=== PATIENT | male | born 1940 | race Caucasian/White ===

== ENCOUNTER 2017-12-25 10:05 | Emergency (ER) | payer OTHER, MEDICARE ==
[~2017-12-25] VITALS: Ht 182.9 cm; Wt 121.0 kg
[~2017-12-25 10:05] MED LIST: ARIC10TA PO; ASPI81TA82 PO; AVOD0.5C PO; BUPR150XL PO; FELO5TAB PO; GABA400 PO; MEGATAB4 PO; NAME5TAB2 PO; OMEGCAP2 PO; PERC5TAB12 PO; TAMS0.4C67 PO; TOPR50TA PO; ZOFR4TAB3 PO
[2017-12-25 10:42] VITALS: BP 162/83; PULSE 56; RESP 16; TEMP 98.1; O2SAT 96
[2017-12-25] MEDS ORDERED: FELO5TAB PO (11:15)
[2017-12-25] MEDS ORDERED: LEVO100T5 PO (11:15)
[2017-12-25] MEDS ORDERED: LOSA25TA PO (11:15)
[2017-12-25] MEDS ORDERED: BUPR300T PO (11:15)
[2017-12-25] MEDS ORDERED: DONE10TA7 PO (11:15)
[2017-12-25] MEDS ORDERED: GABA400C5 PO (11:15)
[2017-12-25] MEDS ORDERED: METF500T PO (11:15)
[2017-12-25] MEDS ORDERED: HYDR12.57 PO (11:15)
[2017-12-25] MEDS ORDERED: ASPI-516 CHEW (11:15)
[2017-12-25] MEDS ORDERED: OMEP20CA2 (11:15)
[2017-12-25] MEDS ORDERED: AVOD0.5C PO (11:15)
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
[2017-12-25] MEDS ORDERED: TRAM50 PO (13:59)
== END 2017-12-25 14:25 | disposition home or self-care (01) ==
LOC: PHEFT 10:05
DX: S22.089A Unspecified fracture of T11-T12 vertebra, initial encounter for closed fracture (principal); S29.012A Strain of muscle and tendon of back wall of thorax, initial encounter; V89.2XXA Person injured in unspecified motor-vehicle accident, traffic, initial encounter; M19.90 Unspecified osteoarthritis, unspecified site; I10 Essential (primary) hypertension; E78.00 Pure hypercholesterolemia, unspecified; F03.90 Unspecified dementia, unspecified severity, without behavioral disturbance, psychotic disturbance, mood disturbance, and anxiety; E11.9 Type 2 diabetes mellitus without complications; K21.9 Gastro-esophageal reflux disease without esophagitis; E07.9 Disorder of thyroid, unspecified; G47.30 Sleep apnea, unspecified; Z87.19 Personal history of other diseases of the digestive system; Z79.82 Long term (current) use of aspirin; Z79.84 Long term (current) use of oral hypoglycemic drugs; Z87.442 Personal history of urinary calculi
CPT/HCPCS: 72125; 72128; 99285; L0150

== ENCOUNTER 2017-12-27 05:35 | Emergency (ER) | payer MEDICARE, OTHER ==
[~2017-12-27] VITALS: Ht 182.9 cm; Wt 122.0 kg
[~2017-12-27 05:35] MED LIST changes: -ARIC10TA PO; +ASPI-516 CHEW; -ASPI81TA82 PO; -BUPR150XL PO; +BUPR300T PO; +DONE10TA7 PO; -GABA400 PO; +GABA400C5 PO; +HYDR12.57 PO; +LEVO100T5 PO; +LOSA25TA PO; -MEGATAB4 PO; +METF500T PO; -NAME5TAB2 PO; -OMEGCAP2 PO; +OMEP20CA2; -PERC5TAB12 PO; -TAMS0.4C67 PO; -TOPR50TA PO; +TRAM50 PO; -ZOFR4TAB3 PO
[2017-12-27 06:07] VITALS: BP 151/75; PULSE 57; RESP 20; TEMP 98.1; O2SAT 95
[2017-12-27 06:27] VITALS: BP 151/75; PULSE 57; RESP 20; TEMP 98.1; O2SAT 95
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
[2017-12-27] MEDS ORDERED: OSEL75 PO (07:08)
== END 2017-12-27 07:19 | disposition home or self-care (01) ==
LOC: PHED 05:35
DX: B34.9 Viral infection, unspecified (principal); F32.9 Major depressive disorder, single episode, unspecified; E78.00 Pure hypercholesterolemia, unspecified; I10 Essential (primary) hypertension; F03.90 Unspecified dementia, unspecified severity, without behavioral disturbance, psychotic disturbance, mood disturbance, and anxiety; E11.9 Type 2 diabetes mellitus without complications; K21.9 Gastro-esophageal reflux disease without esophagitis; E03.9 Hypothyroidism, unspecified; Z79.82 Long term (current) use of aspirin; Z79.84 Long term (current) use of oral hypoglycemic drugs
CPT/HCPCS: 87804; 99283

== ENCOUNTER 2018-04-24 08:24 | Inpatient (IN) | payer MEDICARE, OTHER ==
[2018-04-24] VITALS (10 sets, daily range): BP systolic 138–161; BP diastolic 63–95; PULSE 47–90; RESP 16–20; TEMP 96.1–99; O2SAT 90–97
[~2018-04-24] VITALS: Ht 182.9 cm; Wt 119.4 kg
[~2018-04-24 08:24] MED LIST changes: +OSEL75 PO
--- NOTE | 2018-04-24 08:42 | PD ---
HPI Chief Complaint: Neuro Symptoms/ Deficits Time Seen by Provider: 08:36 Travel History International Travel<30 days: No Contact w/Intl Traveler<30days: No Traveled to known affect area: No History of Present Illness HPI This 77-year-old male is brought by his . Since that he had a hard time waking up today. He thought that he might be . He had to struggle to open his eyes. When he did wake up he had slurred speech and he was very weak. His brought him but had to help him in walking as he was very unsteady. He has never had a stroke. His says that he did not look well yesterday and he was very tired. He took a nap in the afternoon for about 4 hours which is unusual for him. He has no history of heart disease. He does have neuropathy and is on Neurontin for that. He also has hypertension and is on medication for that. PFSH Past Medical History Hx Anticoagulant Therapy: Yes (ASA) Arthritis: Yes Depression: Yes Cardiovascular Problems: Yes (htn on meds) High Cholesterol: Yes Dementia: Yes Diabetes: Yes Diminished Hearing: No Gastrointestinal Disorders: Yes (CONSTIPATION ) GERD: Yes Hypertension: Yes Kidney Stones: Yes Neurologic: Yes (NEUROPATHY IN FEET) Respiratory: Yes (SLEEP APNEA) Immunizations Current: No Sleep Apnea: Yes Thyroid Disease: Yes (HYPO) Past Surgical History Appendectomy: Yes Eye Surgery: Yes (CATARACT) Genitourinary Surgery: Yes (lithotripsy right side) Tonsillectomy: Yes Social History Alcohol Use: Yes (OCC) Tobacco Use: No Substance Use: No Allergies-Medications (Allergen,Severity, Reaction): Coded Allergies: No Known Allergies (Verified Adverse Reaction, Unknown, 04/24/18) Reported Meds & Prescriptions Reported Meds & Active Scripts Active Reported Gabapentin 800 Mg Tab 1,600 Mg PO HS Gabapentin 800 Mg Tab 800 Mg PO DAILY Vitamin B Complex (B-Complex Vitamins) 1 Tab 1 Tab PO DAILY Multi-Vitamin Daily (Multiple Vitamin) 1 Tab Tab 1 Tab PO DAILY Vitamin D3 (Cholecalciferol) 1,000 Unit Tab 1,000 Units PO BID Aspirin 81 Mg Chew 81 Mg CHEW DAILY Hydrochlorothiazide 12.5 Mg Cap 12.5 Mg PO DAILY Losartan (Losartan Potassium) 25 Mg Tab 25 Mg PO DAILY Omeprazole 20 Mg Cap Levothyroxine (Levothyroxine Sodium) 100 Mcg Tab 100 Mcg PO DAILY Felodipine ER (Felodipine) 5 Mg Ileana 5 Mg PO DAILY Bupropion HCl ER 24 HR (Bupropion HCl) 300 Mg Tab 300 Mg PO DAILY Donepezil 10 Mg Tab 10 Mg PO HS Avodart (Dutasteride) 0.5 Mg Cap 0.5 Mg PO DAILY Review of Systems Except as stated in HPI: all other systems reviewed are Neg General / Constitutional: No: Fever Eyes: No: Diploplia HENT: Positive: Lightheadedness, No: Headaches, Vertigo Cardiovascular: No: Chest Pain or Discomfort Respiratory: No: Cough, Shortness of Breath Gastrointestinal: No: Nausea, Vomiting Genitourinary: No: Urgency, Frequency Skin: No Rash, No Itching Neurologic: Positive: Weakness, Other (Slurred speech) Psychiatric: No: Anxiety, Depression Endocrine: No: Heat Intolerance Hematologic/Lymphatic: No: Easy Bruising Physical Exam Narrative GENERAL: Well-developed male SKIN: Focused skin assessment warm/dry. HEAD: Atraumatic. Normocephalic. EYES: Pupils equal and round. No scleral icterus. No injection or drainage. ENT: No nasal bleeding or discharge. Mucous membranes pink and moist. NECK: Trachea midline. No JVD. CARDIOVASCULAR: Regular rate and rhythm. No murmur appreciated. RESPIRATORY: No accessory muscle use. Clear to auscultation. Breath sounds equal bilaterally. GASTROINTESTINAL: Abdomen soft, non-tender, nondistended. Hepatic and splenic margins not palpable. MUSCULOSKELETAL: No obvious deformities. No clubbing. No cyanosis. No edema. NEUROLOGICAL: Awake and alert. No obvious cranial nerve deficits. Motor grossly within normal limits. Normal speech. PSYCHIATRIC: Appropriate mood and affect; insight and judgment normal. Data Data Last Documented VS Vital Signs Date Time Temp Pulse Resp B/P (MAP) Pulse Ox O2 Delivery O2 Flow Rate FiO2 04/24/18 09:35 50 16 139/80 (99) 96 Nasal Cannula 2.00 04/24/18 08:30 97.8 Orders Orders Electrocardiogram (04/24/18 08:36) Complete Blood Count With Diff (04/24/18 08:36) Comprehensive Metabolic Panel (04/24/18 08:36) Troponin I (04/24/18 08:36) Prothrombin Time / Inr (Pt) (04/24/18 08:36) Act Partial Throm Time (Ptt) (04/24/18 08:36) Urinalysis - C+S If Indicated (04/24/18 08:36) Magnesium (Mg) (04/24/18 08:36) Thyroid Stimulating Hormone (04/24/18 08:36) Ct Brain W/O Iv Contrast(Rout) (04/24/18 08:36) Aspirin (Aspirin) (04/24/18 09:15) Admit Order (Ed Use Only) (04/24/18 10:01) Labs Laboratory Tests Test 04/24/18 08:40 White Blood Count 7.3 TH/MM3 Red Blood Count 4.69 MIL/MM3 Hemoglobin 14.3 GM/DL Hematocrit 43.2 % Mean Corpuscular Volume 92.1 FL Mean Corpuscular Hemoglobin 30.5 PG Mean Corpuscular Hemoglobin Concent 33.1 % Red Cell Distribution Width 12.4 % Platelet Count 147 TH/MM3 Mean Platelet Volume 8.6 FL Neutrophils (%) (Auto) 52.7 % Lymphocytes (%) (Auto) 31.0 % Monocytes (%) (Auto) 8.1 % Eosinophils (%) (Auto) 6.7 % Basophils (%) (Auto) 1.5 % Neutrophils # (Auto) 3.8 TH/MM3 Lymphocytes # (Auto) 2.3 TH/MM3 Monocytes # (Auto) 0.6 TH/MM3 Eosinophils # (Auto) 0.5 TH/MM3 Basophils # (Auto) 0.1 TH/MM3 CBC Comment DIFF FINAL Differential Comment Erythrocyte Sedimentation Rate 1 mm/hr Prothrombin Time 10.5 SEC Prothromb Time International Ratio 1.0 RATIO Activated Partial Thromboplast Time 26.7 SEC Blood Urea Nitrogen 18 MG/DL Creatinine 0.96 MG/DL Random Glucose 95 MG/DL Total Protein 6.5 GM/DL Albumin 3.8 GM/DL Calcium Level 8.9 MG/DL Magnesium Level 2.1 MG/DL Alkaline Phosphatase 67 U/L Aspartate Amino Transf (AST/SGOT) 15 U/L Alanine Aminotransferase (ALT/SGPT) 30 U/L Total Bilirubin 0.5 MG/DL Sodium Level 140 MEQ/L Potassium Level 3.9 MEQ/L Chloride Level 106 MEQ/L Carbon Dioxide Level 27.5 MEQ/L Anion Gap 7 MEQ/L Estimat Glomerular Filtration Rate 76 ML/MIN Troponin I LESS THAN 0.02 NG/ML C-Reactive Protein LESS THAN 0.29 MG/DL Thyroid Stimulating Hormone 3rd Gen 0.625 uIU/ML MDM Medical Decision Making Medical Screen Exam Complete: Yes Emergency Medical Condition: Yes Medical Record Reviewed: Yes Differential Diagnosis Differential includes CVA, TIA Narrative Course Patient's says that this gentleman had slurred speech when he woke up. His speech now is clear. CT is negative. He has been given aspirin. I think he needs further evaluation for possible TIA. EKG shows sinus rhythm at a rate of 51 Diagnosis Primary Impression: TIA (transient ischemic attack) Miles Benavides MD April 24, 2018 08:41
[2018-04-24 08:49] LABS: AUTOMATED NEUTROPHIL # 3.8 TH/MM3 (1.8-7.7); BASOPHIL # 0.1 TH/MM3 (0-0.2); BASOPHIL % 1.5 % (0.0-2.0); EOSINOPHIL # 0.5 TH/MM3 (0-0.4); EOSINOPHIL % 6.7 % (0.0-4.0); HEMATOCRIT 43.2 % (39.0-51.0); HEMOGLOBIN 14.3 GM/DL (13.0-17.0); LYMPHOCYTE # 2.3 TH/MM3 (1.0-4.8); MEAN CELL VOLUME 92.1 FL (80.0-100.0); MEAN CORPUSCULAR HEMOGLOBIN 30.5 PG (27.0-34.0); MEAN CORPUSCULAR HGB CONC 33.1 % (32.0-36.0); MEAN PLATELET VOLUME 8.6 FL (7.0-11.0); MONO % 8.1 % (0.0-8.0); MONOCYTE # 0.6 TH/MM3 (0-0.9); NEUT % 52.7 % (16.0-70.0); PLATELET COUNT 147 TH/MM3 (150-450); RED BLOOD COUNT 4.69 MIL/MM3 (4.50-5.90); RED CELL DISTRIBUTION WIDTH 12.4 % (11.6-17.2); WHITE BLOOD COUNT 7.3 TH/MM3 (4.0-11.0)
[2018-04-24 08:56] LABS: CHLORIDE 106 MEQ/L (98-107); SODIUM (NA) 140 MEQ/L (136-145)
[2018-04-24 08:59] LABS: CALCIUM 8.9 MG/DL (8.5-10.1)
[2018-04-24 09:00] LABS: ALBUMIN 3.8 GM/DL (3.4-5.0); BICARBONATE 27.5 MEQ/L (21.0-32.0); BLOOD UREA NITROGEN 18 MG/DL (7-18); GLUCOSE,RANDOM 95 MG/DL (74-106); MAGNESIUM 2.1 MG/DL (1.5-2.5); PROTHROMBIN TIME - PATIENT 10.5 SEC (9.8-11.6)
[2018-04-24 09:03] LABS: ALT (GPT) 30 U/L (12-78); AST (GOT) 15 U/L (15-37); CREATININE 0.96 MG/DL (0.60-1.30); GLOMERULAR FILTRATION RATE 76 ML/MIN (>89)
[2018-04-24 09:04] LABS: TOTAL BILIRUBIN ADULT 0.5 MG/DL (0.2-1.0)
[2018-04-24 09:05] LABS: TOTAL PROTEIN 6.5 GM/DL (6.4-8.2)
--- NOTE | 2018-04-24 09:05 | RADRPT ---
EXAM DATE: 04/24/2018 8:59 AM EDT AGE/SEX: 77 years / Male INDICATIONS: General weakness. CLINICAL DATA: This is the patient's initial encounter. Patient reports that signs and symptoms have been present for 1 day and indicates a pain score of 0/10. MEDICAL/SURGICAL HISTORY: Gastroesophageal reflux disease. Renal calculi. Diabetes. Hypertension . Dementia. Appendectomy. RADIATION DOSE: 58.66 CTDI (mGy) COMPARISON: No prior [facility] exams available for comparison. TECHNIQUE: CT of the head without contrast. Using automated exposure control and adjustment of the mA and/or kV according to patient size, radiation dose was kept as low as reasonably achievable to ob tain optimal diagnostic quality images. FINDINGS: Cerebrum: Moderate diffuse cerebral atrophy. The ventricles are normal for degree of atrophy. No ev idence of midline shift, mass lesion, hemorrhage or acute infarction. No extraaxial fluid collection s are seen. Posterior Fossa: The cerebellum and brainstem are intact. The 4th ventricle is midline. The cerebe llopontine angle is unremarkable. Extracranial: The visualized portion of the orbits is intact. Skull: The calvaria is intact. No evidence of skull fracture. CONCLUSION: 1. Senescent changes without acute intracranial abnormality. Electronically signed by: Luis M Robertson MD 04/24/2018 9:04 AM EDT
[2018-04-24 09:06] LABS: ALKALINE PHOSPHATASE 67 U/L (45-117)
[2018-04-24 09:08] LABS: TROPONIN I LESS THAN 0.02 NG/ML (0.02-0.05)
[2018-04-24] MEDS ORDERED: ASPIRIN 325 MG TAB PO ONE (09:15)
[2018-04-24] MEDS ORDERED: VITATAB11 PO (09:34)
[2018-04-24] MEDS ORDERED: MULT-65 PO (09:34)
[2018-04-24] MEDS ORDERED: VITA100064 PO (09:34)
[2018-04-24] MEDS ORDERED: GABA800T PO ×2 (09:34)
[2018-04-24] MEDS ORDERED: LACTULOSE SYRUP 20 GM/30 ML CUP PO PRN (10:30)
[2018-04-24] MEDS ORDERED: ONDANSETRON HCL 4 MG/2 ML VIAL IVP PRN (10:30)
[2018-04-24] MEDS ORDERED: BISACODYL 10 MG SUPP RECTAL PRN (10:30)
[2018-04-24] MEDS ORDERED: ACETAMINOPHEN 325 MG TAB PO PRN (10:30)
[2018-04-24] MEDS ORDERED: SENNOSIDES 8.6 MG TAB PO PRN (10:30)
[2018-04-24] MEDS ORDERED: MAGNESIUM HYDROXIDE SUSP 30 ML CUP PO PRN (10:30)
[2018-04-24] MEDS ORDERED: NALOXONE HCL 0.4 MG/ML AMP IV PUSH PRN (10:30)
[2018-04-24] MEDS ORDERED: SODIUM CHLORIDE 0.9% FLUSH 10 ML FLUSH IV FLUSH PRN (10:30)
[2018-04-24] MEDS: HEPARIN SODIUM - SQ 10,000 UNITS/ML VIAL SQ SCH ×2 (10:48→21:53)
[2018-04-24] MEDS: SODIUM CHLOR 0.9% 1000 ML INJ 1,000 ML IV SCH (11:39)
[2018-04-24 11:57] LABS: C-REACTIVE PROTEIN LESS THAN 0.29 MG/DL (0.00-0.30)
[2018-04-24 12:08] LABS: BILIRUBIN, URINE NEG (NEG); BLOOD, URINE NEG (NEG); GLUCOSE,URINE NEG (NEG); KETONE, URINE NEG (NEG); NITRITE,URINE NEG (NEG); URINE COLOR YELLOW (YELLW/STRAW); URINE LEUKOCYTE ESTERASE NEG (NEG)
[2018-04-24 12:14] LABS: RBC, URINE 0-3 /hpf (0-3); RENAL EPITHELIAL CELLS 0-5 /hpf; SQUAMOUS EPITHELIAL CELL URINE 0-5 /hpf (0-5)
[2018-04-24] MEDS ORDERED: GADODIAMIDE PF 287 MG/ML 20 ML VIAL (for RAD MRI) IVCONTRAST ONE (14:00)
[2018-04-24 14:34] LABS: FREE T4 1.28 NG/DL (0.76-1.46)
--- NOTE | 2018-04-24 15:33 | RADRPT ---
EXAM DATE: 04/24/2018 3:29 PM EDT AGE/SEX: 77 years / Male INDICATIONS: TIA. CLINICAL DATA: This is the patient's initial encounter. Patient reports that signs and symptoms have been present for 1 day and indicates a pain score of 1/10. MEDICAL/SURGICAL HISTORY: Hypertension. Renal calculi. Appendectomy. Tonsillectomy. Eye lift sx. COMPARISON: No prior [facility] exams available for comparison. TECHNIQUE: Multiplanar, multisequence examination of the brain was performed without and with 20 ml O mniscan (gadodiamide) contrast as a single exam dose. FINDINGS: Cerebrum: The ventricles are normal for age. No evidence of midline shift, mass lesion, hemorrhage or acute infarction. No extraaxial fluid collections are seen. The pituitary gland and suprasellar cistern are normal in configuration. White Matter: No significant signal abnormalities are seen in the white matter. Posterior Fossa: The cerebellum and brainstem are intact. The 4th ventricle is midline. The cerebel lopontine angle is unremarkable. The cerebellar tonsils are normal in position. Diffusion Imaging: No focal areas of restricted diffusion are seen. No evidence of acute infarction . Extracranial: The visualized portions of the orbits and paranasal sinuses are unremarkable. Post Contrast: No abnormal areas of parenchymal or dural enhancement. No evidence of blood-brain ba rrier breakdown. CONCLUSION: 1. Unremarkable exam. 2. No evidence of acute infarct, hemorrhage, mass or edema. 3. No evidence of enhancing intra-axial or extra-axial lesions. Electronically signed by: Mckinley Dominguez MD 04/24/2018 3:32 PM EDT
--- NOTE | 2018-04-24 15:56 | RADRPT ---
EXAM DATE: 04/24/2018 3:51 PM EDT AGE/SEX: 77 years / Male INDICATIONS: TIA. Slurred speech and loss of balance. CLINICAL DATA: This is the patient's initial encounter. Patient reports that signs and symptoms have been present for 1 day and indicates a pain score of 1/10. MEDICAL/SURGICAL HISTORY: Hypertension. Renal calculi. Appendectomy. Tonsillectomy. Eye lift sx. COMPARISON: No prior [facility] exams available for comparison. TECHNIQUE: 20 ml Omniscan (gadodiamide) contrast infused MRA (single exam dose) of the extracranial circulation was performed using a neurovascular coil. Postprocessing was performed, including rotat ing sub-volume maximum intensity projections of each carotid artery, rotating full-volume maximum int ensity projections of both carotid arteries, sagittal and coronal sliding thin-slab reformations of e ach carotid artery, and left oblique sliding thin-slab reformation through the aortic arch to include the origin of the arch branch vessels. FINDINGS: Aortic Arch : There is a three-vessel origin of the great vessels from the aorta. No evidence of o stial narrowing. Right Carotid : The common carotid artery is intact. The carotid bulb has a normal configuration wi thout ulceration or narrowing. The internal carotid artery lumen is smooth without stenosis. The ex ternal carotid artery is intact. Left Carotid : The common carotid artery is intact. The carotid bulb has a normal configuration wit hout ulceration or narrowing. The internal carotid artery lumen is smooth without stenosis. The ext ernal carotid artery is intact. Vertebrals : The vertebral arteries are asymmetric with the right being dominant. There are no proxi mal stenoses. CONCLUSION: 1. No evidence of significant atherosclerotic disease or hemodynamically significant stenosis. 2. Unremarkable exam. Percent stenosis is calculated using the diameter of the stenotic region over the diameter of the nor mal distal internal carotid artery Electronically signed by: Mckinley Dominguez MD 04/24/2018 3:55 ORESTEST
--- NOTE | 2018-04-24 16:06 | RADRPT ---
EXAM DATE: 04/24/2018 3:22 PM EDT AGE/SEX: 77 years / Male INDICATIONS: TIA. Confusion and loss of balance for one day. CLINICAL DATA: This is the patient's initial encounter. Patient reports that signs and symptoms have been present for 1 day and indicates a pain score of 1/10. MEDICAL/SURGICAL HISTORY: Hypertension. Renal calculi. Appendectomy. Tonsillectomy. Eye lift sx. COMPARISON: No prior [facility] exams available for comparison. TECHNIQUE: 3D [id number] MRA was performed. Source images, multiplanar STS MIP, and 3D volum e MIP reconstructions were reviewed. FINDINGS: There is excellent visualization of the major intracranial arteries out to the second-order branch ve ssels. There is no evidence for aneurysm, vessel truncation or stenosis, and no evidence for vascula r malformation. Patient is right vertebral dominant. Both vertebrals are patent CONCLUSION: 1. Patient is right vertebral dominant. 2. Intracranial vessels are all patent without aneurysmal disease. Electronically signed by: Delio Chandler MD 04/24/2018 4:05 PM EDT
--- NOTE | 2018-04-24 18:12 | EKG ---
Date Performed: 04/24/2018 Time Performed: 08:34:40 PTAGE: 77 years EKG: SINUS BRADYCARDIA WITH FIRST DEGREE AV BLOCK Since previous tracing, no significant change noted ABNORMAL ECG PREVIOUS TRACING : 03/12/2016 11.24 DOCTOR: Yamilka Spencer Interpretating Date/Time 04/24/2018 18:11:17
--- NOTE | 2018-04-24 19:42 | MB ---
cc: Kevin Carpio MD DATE: 04/24/2018 HISTORY OF PRESENT ILLNESS: This is a 77-year-old left-handed man with hypertension, hypercholesterolemia, and sleep apnea. He takes a baby aspirin every day. He has a neuropathy, idiopathic, sees Dr. Nayak for that, numb in his hands and feet. He was tired yesterday, took a 4-hour nap, did not sleep well at night, got up at 5:30, fed the cats, was feeling fine and then went back to sleep, woke up at 7:30 and he felt like his skin was vibrating over his chest. No chest pain or palpitations. No headache and then he felt like he could not move for a couple of minutes or maybe less than a minute where he could not get his arms up either side, like he was almost paralyzed and then he was able to get his arms up and take his CPAP machine off, which had been leaking. His then thought that he had some slurred speech and he was able to get up, although felt generally weak all over, but not more one side and then he over 45 minutes seemed to improve. His speech was just slightly slurred, not major according to his . SOCIAL HISTORY: Nonsmoker or drinker, lives with his . FAMILY HISTORY: Positive for cancer. Negative for seizure and stroke. REVIEW OF SYSTEMS: He denies any diabetes, OR, CABG, cardiac arrhythmia, stent, angioplasty, AFib, Coumadin; renal, hepatic, or pulmonary disease; thyroid disease, lupus, ulcer, cancer, seizure, stroke. MEDICATIONS AT HOME: 1. Gabapentin. 2. Aspirin 81. 3. Hydrochlorothiazide. 4. Losartan. 5. Omeprazole. 6. Thyroid . 7. Felodipine ER. 8. Bupropion 300 mg a day. 9. Aricept 10 at bedtime. 10. Avodart. ALLERGIES: NO KNOWN DRUG ALLERGIES. PHYSICAL EXAMINATION: VITAL SIGNS: Afebrile. Sinus rhythm 53-47. He has always been somewhat bradycardic here and even in 2016 was bradycardic. BP 161/77. NECK: There were no carotid bruits. HEART: Regular rate and rhythm. I did not detect a murmur. NEUROLOGIC: Pupils are equal. Visual lewis are full. Extraocular movements intact without nystagmus. Face is symmetric with normal sensation. Tongue was midline. There is no drift. He had normal strength in upper and lower extremities bilaterally. DTRs are trace to absent throughout. Toes are downgoing bilaterally. Pinprick was diminished about shelter at the lower leg bilaterally, but otherwise intact hands and face. He is not ataxic on [id number]. Speech is fluent. He is not aphasic. He is alert and oriented x 3. He knew the day of the week, the month. He gives a good history. LABORATORY DATA: Sedimentation rate was 1. RPR pending. Urine drug screen negative. UA negative. Basic metabolic profile was normal. LFTs normal. CRP, B12, thyroid, ABG normal except for a PaCO2 of 45. DIAGNOSTIC STUDIES: He had an MRA of the neck that was read as normal. He had MRA of the head, right vertebral dominant, otherwise normal. He had an MRA of the brain that was read as normal on review of those films. Diffusion images in fact negative. No infarct is noted. Flair images, mastoids looked fine except for a little bit of fluid in the right mastoid. Syeda is normal. No major atrophy. No strokes, old or new. GRE imaging, no hemorrhage. MRA right vert is dominant, left one is smaller and does, however come up to meet the basilar, fairly patent. Carotids look fine. IMPRESSION AND RECOMMENDATIONS: Possibly a parasomnia, though the slurred speech was only slight but it did last about 45 minutes. I think a transient ischemic attack is unlikely. We could increase his aspirin to 325 and I ordered that to be done. I will just check his lipid profile. I note his troponin was negative. CRP was also normal. We will get an echocardiogram and I think he should get a 30-day monitor just to make sure there is no major heart arrhythmia problem with this feeling of vibration on his skin of his chest, a;though he says it was not deep in his chest. Another option would be like a panic attack; however, he is not really a nervous person. Certainly, the Aricept, we would recommend switching that to the morning as that can cause some vivid dreams. A sleep paralysis could be considered. I think also probably unlikely, but Dr. Nayak probably in the office would be better suited to deal with any parasomnias than I. He should get that 30-day monitor from Dr. White, however. Here, we will just check an echo and if it looks okay, I would send him home on 325 of aspirin. For now, we will just hold the Aricept until he has that monitor done by cardiology. ADDENDUM I would also stop his Wellbutrin, as that can cause seizures. MD AZAEL Mckeon/BENJI , 07:04 PM , 07:41 PM
[2018-04-24] MEDS: DOCUSATE SODIUM 50 MG/SENNA 8.6 MG TAB PO SCH (20:23)
[2018-04-24] MEDS: SODIUM CHLORIDE 0.9% FLUSH 10 ML FLUSH IV FLUSH SCH (20:23)
[2018-04-24] MEDS: GABAPENTIN 400 MG CAP PO SCH (20:23)
[2018-04-24] MEDS ORDERED: DONEPEZIL HCL 5 MG TAB PO SCH (21:00)
[2018-04-24] MEDS ORDERED: buPROPion HCL 150 MG SUSTAINED RELEASE TAB PO SCH (21:00)
[2018-04-25] VITALS (8 sets, daily range): BP systolic 135–154; BP diastolic 74–87; PULSE 55–90; RESP 15–20; TEMP 96.3–98.1; O2SAT 93–98
[2018-04-25] MEDS: SODIUM CHLOR 0.9% 1000 ML INJ 1,000 ML IV SCH ×2 (00:22→13:42)
[2018-04-25] MEDS: LEVOTHYROXINE SODIUM 100 MCG TAB PO SCH (05:34)
[2018-04-25] MEDS: DONEPEZIL HCL 5 MG TAB PO SCH (05:35)
[2018-04-25 07:38] LABS: CHLORIDE 106 MEQ/L (98-107); SODIUM (NA) 141 MEQ/L (136-145)
[2018-04-25 07:48] LABS: CALCIUM 9.3 MG/DL (8.5-10.1)
[2018-04-25 07:49] LABS: ALBUMIN 3.6 GM/DL (3.4-5.0); BICARBONATE 27.7 MEQ/L (21.0-32.0); BLOOD UREA NITROGEN 15 MG/DL (7-18); GLUCOSE,RANDOM 88 MG/DL (74-106)
[2018-04-25 07:52] LABS: ALT (GPT) 28 U/L (12-78); AST (GOT) 16 U/L (15-37); GLOMERULAR FILTRATION RATE 82 ML/MIN (>89)
[2018-04-25 07:53] LABS: TOTAL PROTEIN 6.2 GM/DL (6.4-8.2)
[2018-04-25 07:55] LABS: ALKALINE PHOSPHATASE 55 U/L (45-117)
[2018-04-25 08:01] LABS: TOTAL BILIRUBIN ADULT 0.8 MG/DL (0.2-1.0)
--- NOTE | 2018-04-25 08:03 | HHI.HP ---
History of Present Illness Primary Care Physician Harshil Leon, DO Admission Diagnosis TIA Diagnoses: History of Present Illness pt had marked difficuty awakening difficulty with movement on left side yesterday this lasted about 20 minutes and there is no residual today Review of Systems Constitutional: COMPLAINS OF: Weight loss Past Family Social History Allergies: Coded Allergies: No Known Allergies (Verified Adverse Reaction, Unknown, 04/24/18) Past Medical History obesity hypertension hyperlipidemia memory deficit Past Surgical History appendectomy Reported Medications Reported Meds & Active Scripts Active Reported Gabapentin 800 Mg Tab 1,600 Mg PO HS Gabapentin 800 Mg Tab 800 Mg PO DAILY Vitamin B Complex (B-Complex Vitamins) 1 Tab 1 Tab PO DAILY Multi-Vitamin Daily (Multiple Vitamin) 1 Tab Tab 1 Tab PO DAILY Vitamin D3 (Cholecalciferol) 1,000 Unit Tab 1,000 Units PO BID Aspirin 81 Mg Chew 81 Mg CHEW DAILY Hydrochlorothiazide 12.5 Mg Cap 12.5 Mg PO DAILY Losartan (Losartan Potassium) 25 Mg Tab 25 Mg PO DAILY Omeprazole 20 Mg Cap Levothyroxine (Levothyroxine Sodium) 100 Mcg Tab 100 Mcg PO DAILY Felodipine ER (Felodipine) 5 Mg Ileana 5 Mg PO DAILY Bupropion HCl ER 24 HR (Bupropion HCl) 300 Mg Tab 300 Mg PO DAILY Donepezil 10 Mg Tab 10 Mg PO HS Avodart (Dutasteride) 0.5 Mg Cap 0.5 Mg PO DAILY Active Ordered Medications Inpatient Medications Acetaminophen (Tylenol) 650 mg Q4H PRN PO TEMP > 100.4; Start 04/24/18 at 10:30 Amlodipine Besylate (Norvasc) 5 mg DAILY PO ; Start 04/25/18 at 09:00 Aspirin (Aspirin Chew) 81 mg DAILY CHEW ; Start 04/25/18 at 09:00; Stop at 09:00; Status DC Aspirin (Aspirin) 325 mg DAILY PO ; Start 04/25/18 at 09:00 Bisacodyl (Dulcolax Supp) 10 mg DAILY PRN RECTAL SEVERE CONSITIPATION; Start at 10:30 Bupropion HCl (Wellbutrin Sr) 150 mg BID PO ; Start 04/24/18 at 21:00; Stop at 21:00; Status DC Donepezil HCl (Aricept) 10 mg DAILY@0600 PO Last administered on 04/25/18at 05: 35; Start 04/25/18 at 06:00 Finasteride (Proscar) 5 mg DAILY PO ; Start 04/25/18 at 09:00 Gabapentin (Neurontin) 800 mg DAILY PO ; Start 04/25/18 at 09:00 Heparin Sodium (Porcine) (Heparin Inj) 5,000 units DAILY@1000,2200 SQ Last administered on 04/24/18at 10:48; Start 04/24/18 at 10:30 Hydrochlorothiazide (Microzide) 12.5 mg DAILY PO ; Start 04/25/18 at 09:00 Lactulose (Lactulose Liq) 30 ml DAILY PRN PO SEVERE CONSITIPATION; Start at 10:30 Levothyroxine Sodium (Synthroid) 100 mcg DAILY@0600 PO Last administered on at 05:34; Start 04/25/18 at 06:00 Losartan Potassium (Cozaar) 25 mg DAILY PO ; Start 04/25/18 at 09:00 Magnesium Hydroxide (Milk Of Magnesia Liq) 30 ml Q12H PRN PO Mild constipation ; Start 04/24/18 at 10:30 Naloxone HCl (Narcan Inj) 0.4 mg UNSCH PRN IV PUSH SEE LABEL COMMENTS; Start at 10:30 Ondansetron HCl (Zofran Inj) 4 mg Q6H PRN IVP NAUSEA OR VOMITING; Start at 10:30 Senna/Docusate Sodium (Nadya-Colace) 1 tab BID PO ; Start 04/24/18 at 21:00 Sennosides (Senokot) 17.2 mg Q12H PRN PO Moderate constipation; Start 04/24/18 at 10:30 Sodium Chloride 1,000 ml @ 75 mls/hr [id number] IV Last administered on at 11:39; Start 04/24/18 at 11:02 Sodium Chloride (NS Flush) 2 ml BID IV FLUSH Last administered on 04/24/18at 20: 23; Start 04/24/18 at 21:00 Family History both parents had cancer Social History non smoker rare drinker Physical Exam Vital Signs Vital Signs Date Time Temp Pulse Resp B/P (MAP) Pulse Ox O2 Delivery O2 Flow Rate FiO2 04/25/18 00:00 98.1 90 15 147/86 (106) 98 04/24/18 23:00 58 04/24/18 20:00 99.0 90 16 153/95 (114) 95 04/24/18 15:38 96.8 53 20 161/77 (105) 97 04/24/18 13:52 96.1 50 20 158/81 (106) 96 04/24/18 13:34 57 16 138/88 (105) 95 04/24/18 12:08 58 16 156/83 (107) 97 Room Air 04/24/18 10:32 54 04/24/18 10:09 47 16 141/63 (89) 97 Nasal Cannula 2.00 04/24/18 09:35 50 16 139/80 (99) 96 Nasal Cannula 2.00 04/24/18 08:30 97.8 57 18 154/82 (106) 90 04/24/18 08:30 Room Air Physical Exam GENERAL: This is a well-nourished, well-developed patient, in no apparent distress. SKIN: No rashes, ecchymoses or lesions. Cool and dry. HEAD: Atraumatic. Normocephalic. No temporal or scalp tenderness. EYES: Pupils equal round and reactive. Extraocular motions intact. No scleral icterus. No injection or drainage. ENT: Nose without bleeding, purulent drainage or septal hematoma. Throat without erythema, tonsillar hypertrophy or exudate. Uvula midline. Airway patent. NECK: Trachea midline. No JVD or lymphadenopathy. Supple, nontender, no meningeal signs. CARDIOVASCULAR: Regular rate and rhythm without murmurs, gallops, or rubs. RESPIRATORY: Clear to auscultation. Breath sounds equal bilaterally. No wheezes , rales, or rhonchi. GASTROINTESTINAL: Abdomen soft, non-tender, nondistended. obese No hepato- splenomegaly, or palpable masses. No guarding. MUSCULOSKELETAL: Extremities without clubbing, cyanosis, or edema. No joint tenderness, effusion, or edema noted. No calf tenderness. Negative Homans sign bilaterally. NEUROLOGICAL: Awake and alert. Cranial nerves II through XII intact. Motor and sensory grossly within normal limits. Five out of 5 muscle strength in all muscle groups. Normal speech. Laboratory Laboratory Tests Test 04/24/18 08:40 04/24/18 11:35 04/24/18 11:46 04/24/18 12:00 White Blood Count 7.3 Red Blood Count 4.69 Hemoglobin 14.3 Hematocrit 43.2 Mean Corpuscular Volume 92.1 Mean Corpuscular Hemoglobin 30.5 Mean Corpuscular Hemoglobin Concent 33.1 Red Cell Distribution Width 12.4 Platelet Count 147 Mean Platelet Volume 8.6 Neutrophils (%) (Auto) 52.7 Lymphocytes (%) (Auto) 31.0 Monocytes (%) (Auto) 8.1 Eosinophils (%) (Auto) 6.7 Basophils (%) (Auto) 1.5 Neutrophils # (Auto) 3.8 Lymphocytes # (Auto) 2.3 Monocytes # (Auto) 0.6 Eosinophils # (Auto) 0.5 Basophils # (Auto) 0.1 CBC Comment DIFF FINAL Differential Comment Erythrocyte Sedimentation Rate 1 Prothrombin Time 10.5 Prothromb Time International Ratio 1.0 Activated Partial Thromboplast Time 26.7 Blood Urea Nitrogen 18 Creatinine 0.96 Random Glucose 95 Total Protein 6.5 Albumin 3.8 Calcium Level 8.9 Magnesium Level 2.1 Alkaline Phosphatase 67 Aspartate Amino Transf (AST/SGOT) 15 Alanine Aminotransferase (ALT/SGPT) 30 Total Bilirubin 0.5 Sodium Level 140 Potassium Level 3.9 Chloride Level 106 Carbon Dioxide Level 27.5 Anion Gap 7 Estimat Glomerular Filtration Rate 76 Troponin I LESS THAN 0.02 C-Reactive Protein LESS THAN 0.29 Vitamin B12 Level 468 Free Thyroxine 1.28 Thyroid Stimulating Hormone 3rd Gen 0.625 Ammonia 12 Blood Gas Puncture Site LT RADIAL Blood Gas Patient Temperature 98.6 Blood Gas HCO3 27 Blood Gas Base Excess 3.1 Blood Gas Oxygen Saturation 96 Arterial Blood pH 7.41 Arterial Blood Partial Pressure CO2 45 Arterial Blood Partial Pressure O2 102 Arterial Blood Oxygen Content 19.7 Arterial Blood Carboxyhemoglobin 1.5 Arterial Blood Methemoglobin 1.0 Blood Gas Hemoglobin 14.6 Oxygen Delivery Device NASAL CANNULA Blood Gas Liter Flow 2 Urine Collection Type CLEAN CATCH Urine Color YELLOW Urine Turbidity CLEAR Urine pH 6.0 Urine Specific [place] 1.020 Urine Protein TRACE Urine Glucose (UA) NEG Urine Ketones NEG Urine Occult Blood NEG Urine Nitrite NEG Urine Bilirubin NEG Urine Urobilinogen 0.2 Urine Leukocyte Esterase NEG Urine RBC 0-3 Urine WBC 3-5 Urine Squamous Epithelial Cells 0-5 Urine Renal Epithelial Cells 0-5 Microscopic Urinalysis Comment CULT NOT INDICATED Urine Collection Time 12:00 Urine Opiates Screen NEG Urine Barbiturates Screen NEG Urine Amphetamines Screen NEG Urine Benzodiazepines Screen NEG Urine Cocaine Screen NEG Urine Cannabinoids Screen NEG Test 04/25/18 06:04 Blood Urea Nitrogen 15 Creatinine 0.90 Random Glucose 88 Total Protein 6.2 Albumin 3.6 Calcium Level 9.3 Alkaline Phosphatase 55 Aspartate Amino Transf (AST/SGOT) 16 Alanine Aminotransferase (ALT/SGPT) 28 Sodium Level 141 Potassium Level 4.1 Chloride Level 106 Carbon Dioxide Level 27.7 Anion Gap 7 Estimat Glomerular Filtration Rate 82 Result Diagram: 04/24/18 0840 04/25/18 06 Imaging Last Impressions Neck Magnetic Resonance Angiography 04/24/18 110 Signed Impressions: CONCLUSION: 1. No evidence of significant atherosclerotic disease or hemodynamically signi ficant stenosis. 2. Unremarkable exam. Percent stenosis is calculated using the diameter of the stenotic region over t he diameter of the normal distal internal carotid artery Head Magnetic Resonance Angiography 04/24/18 110 Signed Impressions: CONCLUSION: 1. Patient is right vertebral dominant. 2. Intracranial vessels are all patent without aneurysmal disease. Brain MRI 04/24/18 110 Signed Impressions: CONCLUSION: 1. Unremarkable exam. 2. No evidence of acute infarct, hemorrhage, mass or edema. 3. No evidence of enhancing intra-axial or extra-axial lesions. Head CT 04/24/18 0836 Signed Impressions: CONCLUSION: 1. Senescent changes without acute intracranial abnormality. Caprini VTE Risk Assessment Caprini VTE Risk Assessment: No/Low Risk (score <= 1) Caprini Risk Assessment Model Point Value = 1 Point Value = 2 Point Value = 3 Point Value = 5 Age 41-60 Minor surgery BMI > 25 kg/m2 Swollen legs Varicose veins or History of unexplained or recurrent spontaneous Oral contraceptives or hormone replacement Sepsis (< 1 month) Serious lung disease, including pneumonia (< 1 month) Abnormal pulmonary function Acute myocardial infarction Congestive heart failure (< 1 month) History of inflammatory bowel disease Medical patient at bed rest Age 61-74 Arthroscopic surgery Major open surgery (> 45 min) Laparoscopic surgery (> 45 min) Malignancy Confined to bed (> 72 hours) Immobilizing plaster cast Central venous access Age >= 75 History of VTE Family history of VTE Factor V Leiden Prothrombin [id number] Lupus anticoagulant Anticardiolipin antibodies Elevated serum homocysteine Heparin-induced thrombocytopenia Other congenital or acquired thrombophilia Stroke (< 1 month) Elective arthroplasty Hip, pelvis, or leg fracture Acute spinal cord injury (< 1 month) Prophylaxis Regimen Total Risk Factor Score Risk Level Prophylaxis Regimen 0-1 Low Early ambulation 2 Moderate Order ONE of the following: *Sequential Compression Device (SCD) *Heparin 5000 units SQ BID 3-4 Higher Order ONE of the following medications: *Heparin 5000 units SQ TID *Enoxaparin/Lovenox 40 mg SQ daily (WT < 150 kg, CrCl > 30 mL/min) *Enoxaparin/Lovenox 30 mg SQ daily (WT < 150 kg, CrCl > 10-29 mL/min) *Enoxaparin/Lovenox 30 mg SQ BID (WT < 150 kg, CrCl > 30 mL/min) AND/OR *Sequential Compression Device (SCD) 5 or more Highest Order ONE of the following medications: *Heparin 5000 units SQ TID (Preferred with Epidurals) *Enoxaparin/Lovenox 40 mg SQ daily (WT < 150 kg, CrCl > 30 mL/min) *Enoxaparin/Lovenox 30 mg SQ daily (WT < 150 kg, CrCl > 10-29 mL/min) *Enoxaparin/Lovenox 30 mg SQ BID (WT < 150 kg, CrCl > 30 mL/min) AND *Sequential Compression Device (SCD) Assessment and Plan Assessment and Plan TIA neuro workup in progress Harshil Leon DO April 25, 2018 08:03
[2018-04-25] MEDS: DOCUSATE SODIUM 50 MG/SENNA 8.6 MG TAB PO SCH ×2 (08:41→22:02)
[2018-04-25] MEDS ORDERED: ASPIRIN 325 MG TAB PO SCH (09:00)
[2018-04-25] MEDS ORDERED: ASPIRIN 81 MG CHEW TAB CHEW SCH (09:00)
[2018-04-25] MEDS: SODIUM CHLORIDE 0.9% FLUSH 10 ML FLUSH IV FLUSH SCH ×2 (09:00→22:03)
[2018-04-25] MEDS ORDERED: FINASTERIDE 5 MG TAB PO SCH (09:00)
[2018-04-25] MEDS ORDERED: GABAPENTIN 400 MG CAP PO SCH (09:00)
[2018-04-25] MEDS ORDERED: HYDROCHLOROTHIAZIDE 12.5 MG CAP PO SCH (09:00)
[2018-04-25] MEDS ORDERED: LOSARTAN 25 MG TAB PO SCH (09:00)
[2018-04-25] MEDS ORDERED: amLODIPine BESYLATE 5 MG TAB PO SCH (09:00)
[2018-04-25] MEDS: HEPARIN SODIUM - SQ 10,000 UNITS/ML VIAL SQ SCH ×2 (09:02→22:03)
--- NOTE | 2018-04-25 10:48 | HHI.PR ---
Objective Vital Signs Date Time Temp Pulse Resp B/P (MAP) Pulse Ox O2 Delivery O2 Flow Rate FiO2 04/25/18 08:35 98.0 59 18 145/87 (106) 04/25/18 00:00 98.1 90 15 147/86 (106) 98 04/24/18 23:00 58 04/24/18 20:00 99.0 90 16 153/95 (114) 95 04/24/18 15:38 96.8 53 20 161/77 (105) 97 04/24/18 13:52 96.1 50 20 158/81 (106) 96 04/24/18 13:34 57 16 138/88 (105) 95 04/24/18 12:08 58 16 156/83 (107) 97 Room Air I/O 04/24/18 04/24/18 04/24/18 04/25/18 04/25/18 04/25/18 07:00 15:00 23:00 07:00 15:00 23:00 Intake Total 860 ml 600 ml Output Total 300 ml Balance -300 ml 860 ml 600 ml Intake Oral 860 ml 600 ml Output Urine Total 300 ml # Voids 1 4 3 # Bowel Movements 1 Result Diagram: 04/24/18 0840 04/25/18 0604 Assessment and Plan Assessment and Plan nurse tells me doing well overnoc if echo neg and eeg done and holter on could dc on asa sb to49 should get 30day holter o/p dr girma Carpio,Kevin Kenny MD April 25, 2018 10:48
[2018-04-25] MEDS: GABAPENTIN 400 MG CAP PO SCH (22:02)
[2018-04-26] VITALS: BP 140/76; PULSE 55; RESP 20; TEMP 97.2; O2SAT 95
[2018-04-26] MEDS: SODIUM CHLOR 0.9% 1000 ML INJ 1,000 ML IV SCH (03:02)
[2018-04-26 04:00] VITALS: BP 136/83; PULSE 58; RESP 20; TEMP 97.4; O2SAT 95
[2018-04-26] MEDS: LEVOTHYROXINE SODIUM 100 MCG TAB PO SCH (06:17)
[2018-04-26] MEDS: DONEPEZIL HCL 5 MG TAB PO SCH (06:17)
--- NOTE | 2018-04-26 07:35 | HHI.DCPOC ---
Discharge Care Plan Diagnosis: (1) TIA (transient ischemic attack) Goals to Promote Your Health * To prevent worsening of your condition and complications * To maintain your health at the optimal level Directions to Meet Your Goals Take your medications as prescribed Follow your dietary instruction Follow activity as directed Keep your appointments as scheduled Take your immunizations and boosters as scheduled If your symptoms worsen call your PCP, if no PCP go to Urgent Care Center or Emergency Room Smoking is Dangerous to Your Health. Avoid second hand smoke Call the 24-hour hour crisis hotline for domestic abuse at Harshil Leon DO April 26, 2018 07:35
[2018-04-26 07:42] VITALS: BP 138/79; PULSE 50; RESP 20; TEMP 96.6; O2SAT 94
--- NOTE | 2018-04-26 07:42 | HHI.DS ---
Discharge Summary Admission Date April 24, 2018 at 10:02 Discharge Date: April 26, 2018 Admitting Diagnosis TIA (1) TIA (transient ischemic attack) ICD Codes: G45.9 - Transient cerebral ischemic attack, unspecified Status: Acute Procedures NONE Brief History pt had marked difficuty awakening difficulty with movement on left side yesterday this lasted about 20 minutes and there is no residual today CBC/BMP: 04/24/18 0840 04/25/18 0604 Significant Findings Laboratory Tests Test 04/24/18 08:40 04/24/18 11:35 04/24/18 11:46 04/24/18 12:00 Platelet Count 147 TH/MM3 (150-450) Monocytes (%) (Auto) 8.1 % (0.0-8.0) Eosinophils (%) (Auto) 6.7 % (0.0-4.0) Eosinophils # (Auto) 0.5 TH/MM3 (0-0.4) Estimat Glomerular Filtration Rate 76 ML/MIN (>89) Troponin I LESS THAN 0.02 NG/ML Blood Gas HCO3 27 mmol/L (22-26) Blood Gas Base Excess 3.1 mmol/L (-2-2) Arterial Blood Partial Pressure CO2 45 mmHG (38-42) Test 04/25/18 06:04 Total Protein 6.2 GM/DL (6.4-8.2) Estimat Glomerular Filtration Rate 82 ML/MIN (>89) Imaging Last Impressions Neck Magnetic Resonance Angiography 04/24/18 1102 Signed Impressions: CONCLUSION: 1. No evidence of significant atherosclerotic disease or hemodynamically signi ficant stenosis. 2. Unremarkable exam. Percent stenosis is calculated using the diameter of the stenotic region over t he diameter of the normal distal internal carotid artery Head Magnetic Resonance Angiography 04/24/18 1102 Signed Impressions: CONCLUSION: 1. Patient is right vertebral dominant. 2. Intracranial vessels are all patent without aneurysmal disease. Brain MRI 04/24/18 1102 Signed Impressions: CONCLUSION: 1. Unremarkable exam. 2. No evidence of acute infarct, hemorrhage, mass or edema. 3. No evidence of enhancing intra-axial or extra-axial lesions. Head CT 04/24/18 0836 Signed Impressions: CONCLUSION: 1. Senescent changes without acute intracranial abnormality. PE at Discharge GENERAL: Well-nourished, well-developed patient. SKIN: Warm and dry. HEAD: Normocephalic. EYES: No scleral icterus. No injection or drainage. NECK: Supple, trachea midline. No JVD or lymphadenopathy. CARDIOVASCULAR: Regular rate and rhythm without murmurs, gallops, or rubs. RESPIRATORY: Breath sounds equal bilaterally. No accessory muscle use. GASTROINTESTINAL: Abdomen soft, non-tender, nondistended. OBESE EXTREMITIES: No cyanosis, or edema. NEUROLOGICAL: Awake, alert, and oriented x 3. Non-focal. Hospital Course PT ADMITTED WITH TIA NEURO WORKUP NEGATIVE DC HOME IN STABLE CONDITION FU GRW NEXT WEEK Pt Condition on Discharge: Good Discharge Disposition: Discharge Home Discharge Instructions DIET: Follow Instructions for: As Tolerated, No Restrictions Speech Therapy-Diet Recommenda: Regular Activities you can perform: Regular-No Restrictions Follow up Referrals: PCP Follow-up - 1 Week with Thiago DAVID Continued Medications: Aspirin (Aspirin) 81 Mg Chew 81 MG CHEW DAILY, TAB 0 Refills B-Complex Vitamins (Vitamin B Complex) 1 Tab 1 TAB PO DAILY Bupropion HCl ER 24 HR (Bupropion HCl ER 24 HR) 300 Mg Tab 300 MG PO DAILY for Control Depression, TAB 0 Refills Cholecalciferol (Vitamin D3) 1,000 Unit Tab 1000 UNITS PO BID for Nutritional Supplement, #1 BOTTLE 0 Refills Donepezil (Donepezil) 10 Mg Tab 10 MG PO HS for Dementia, #30 TAB 0 Refills Dutasteride (Avodart) 0.5 Mg Cap 0.5 MG PO DAILY for Manage Prostate Problems, #30 CAP 0 Refills Felodipine ER (Felodipine ER) 5 Mg [place] 5 MG PO DAILY for Blood Pressure Management, #30 TAB 0 Refills Gabapentin (Gabapentin) 800 Mg Tab 800 MG PO DAILY, #90 TAB 0 Refills Gabapentin (Gabapentin) 800 Mg Tab 1600 MG PO HS, #90 TAB 0 Refills Hydrochlorothiazide (Hydrochlorothiazide) 12.5 Mg Cap 12.5 MG PO DAILY, #30 CAP 0 Refills Levothyroxine (Levothyroxine) 100 Mcg Tab 100 MCG PO DAILY for Thyroid, #30 TAB 0 Refills Losartan (Losartan) 25 Mg Tab 25 MG PO DAILY for Blood Pressure Management, #30 TAB 0 Refills Multiple Vitamin (Multi-Vitamin Daily) 1 Tab Tab 1 TAB PO DAILY for Nutritional Supplement, TAB 0 Refills Omeprazole (Omeprazole) 20 Mg Harshil Perdomo DO April 26, 2018 07:42
--- NOTE | 2018-04-26 08:14 | ECHRPT ---
Indication: CVA/TIA CONCLUSIONS Normal left ventricular size. Wall thickness is normal. The left ventricular systolic function is normal with an estimated ejection fraction in the range of 55-60%. No definite regional wall motion abnormalities. Trace aortic valve regurgitation. BP: / HR: Rhythm: Technical Quality: FINDINGS LEFT VENTRICLE Normal left ventricular size. Wall thickness is normal. The left ventricular systolic function is normal with an estimated ejection fraction in the range of 55-60%. No definite regional wall motion abnormalities. RIGHT VENTRICLE Normal right ventricular size and systolic function. LEFT ATRIUM The left atrial size is normal. RIGHT ATRIUM The right atrial size is normal. ATRIAL SEPTUM Normal atrial septal thickness without atrial level shunting by limited color doppler interrogation. AORTA The aortic root and proximal ascending aorta are normal in size on limited imaging. MITRAL VALVE Structurally normal mitral valve. No mitral valve stenosis or regurgitation. AORTIC VALVE Trace aortic valve regurgitation. Aortic valve sclerosis is present. TRICUSPID VALVE Structurally normal tricuspid valve. No tricuspid valve stenosis or regurgitation. PULMONARY VALVE The pulmonary valve is not well visualized. VESSELS The inferior vena cava is normal in size. PERICARDIUM No pericardial effusion. Sushil Ramsey MD (Electronically Signed) Final Date:26 Apr 2018 08:13
--- NOTE | 2018-04-26 10:04 | MG ---
cc: Kevin Carpio MD [facility] [id number] Drowsy, asleep EEG. Aricept has been stopped. Synthroid, Neurontin. Change in mental status. DESCRIPTION: Currently shows a symmetric 8 Hz, 60 microvolt posterior rhythm. Recording overall synchronous and symmetric. The patient appears to be in stage II sleep at the start the recording. One phase reversing sharply contoured alpha wave, almost looks like a spike is seen over T6 on the bipolar, but not seen as well on transverse and I think probably is within his beginning of sleep, normal variant, but definite asymmetry at Epoch 14 on the right posterior temporal lobe. Sleep spindles are then noted. Another similar waveform is seen at Epoch 57, not really appreciated on the transverse, just a bipolar montage. There is definite stage II sleep as the recording continues. Some feet moving during sleep is seen by the tech. Photic stimulation is performed without significant posterior driving. Some POSTS are noted bilaterally. He has a run of 5 Hz diffuse bioccipital rhythm at Epoch 131 with photic stimulation of 23 Hz. IMPRESSION: Two small sharps over the right posterior temporal lobe, could be a variant in sleep, although seizure could be considered, posterior right temporal abnormality should be ruled out. Kevin Carpio MD DJM/TL , 09:40 AM , 10:03 AM
--- NOTE | 2018-04-29 14:34 | HM ---
Date Performed: 04/24/2018 Time Performed: 20:09:00 HOOKUP DATE: 04/24/18 08:09:00 PM Fri ANALYSIS START TIME: 04/24/2018 8:14:00 PM ANALYSIS END TIME: 04/25/2018 8:06:13 PM PATIENT AGE: 77 PATIENT HEIGHT PATIENT WEIGHT DRUG LIST PATIENT DIAGNOSIS: TIA TEST NARRATIVE: The patient's average heart rate was 56 BPM. No episodes of tachycardia wer e noted. Heart rates less than 50 BPM were noted 44% of the time. One pause of 2.0 seconds occur red at 06:52 AM. 8 ventricular ectopics, which represented < 1% of the total beat count, were not ed. The highest ventricular ectopic frequency occurred from 06:00 AM to 07:00 AM Sat. During this t dipak 2 VE(s) occurred. Ventricular ectopics were observed as 8 isolated beat(s) only. No couplets or runs were noted. 513 supraventricular ectopics, which represented 1% of the total beat count, we re noted. The highest supraventricular ectopic frequency occurred from 02:00 PM to 03:00 PM Sat. Du ring this time 66 SVE(s) occurred. No episodes of ST depression (defined as -1.0 mm or more) were noted in channel 1. No episodes of ST depression (defined as -1.0 mm or more) were noted in channel 2. No episodes of ST depression (defined as -1.0 mm or more) were noted in channel 3. TEST INTERPRETATION: Sinus rhtyhm Rare premature ventricular complexes Occasional premature atri al complexes Signed by : Sandoval oglesby
== END 2018-04-26 09:04 | disposition home or self-care (01) | DRG 156 ==
LOC: PHED 08:24 → PHEDA 10:02 → PH3A 13:40
PROVIDERS: ADMIT Family Medicine; ATTEND Family Medicine
DX: G47.50 Parasomnia, unspecified (principal); E11.42 Type 2 diabetes mellitus with diabetic polyneuropathy; F03.90 Unspecified dementia, unspecified severity, without behavioral disturbance, psychotic disturbance, mood disturbance, and anxiety; E78.5 Hyperlipidemia, unspecified; K21.9 Gastro-esophageal reflux disease without esophagitis; I10 Essential (primary) hypertension; G47.30 Sleep apnea, unspecified; E03.9 Hypothyroidism, unspecified; R47.81 Slurred speech; E66.9 Obesity, unspecified; M19.90 Unspecified osteoarthritis, unspecified site; F32.9 Major depressive disorder, single episode, unspecified; Z68.35 Body mass index [BMI] 35.0-35.9, adult
CPT/HCPCS: 36600; 70450; 70544; 70548; 70553; 80053; 80307; 81001; 82140; 82607; 82805; 83735; 84207; 84425; 84439; 84443; 84484; 85025; 85610; 85652; 85730; 86038; 86140; 86592; 93005; 93225; 93226; 93306; 95819; A9579; J1644; J7030